=== PATIENT | female | born 1975 | race Caucasian/White ===

== ENCOUNTER 2017-02-06 20:52 | Emergency (ER) | payer OTHER ==
[~2017-02-06] VITALS: Ht 160 cm; Wt 75.7 kg
[2017-02-06 22:00] VITALS: BP 121/75
== END 2017-02-06 22:00 | disposition home or self-care (01) ==
LOC: ED 20:52
DX: F41.9 Anxiety disorder, unspecified (principal)
CPT/HCPCS: Q0092